=== PATIENT | female | born 1975 | race Asian ===

== ENCOUNTER → 2017-12-29 | Outpatient (CLI) | payer OTHER ==
[2017-12-29 07:20] LABS: HEMATOCRIT 35.6 % (36.0-47.0); HEMOGLOBIN 12.1 g/dl (12.0-15.5); MEAN CORPUSCULAR HEMOGLOBIN 28.3 pg (27.0-33.0); MEAN CORPUSCULAR VOLUME 83.4 fl (80.0-96.0); PLATELET COUNT, AUTOMATED 241 10^3/uL (150-450); RED BLOOD COUNT 4.27 10^6/uL (4.00-5.40); RED CELL DISTRIBUTION WIDTH 12.2 % (11.5-14.5); WHITE BLOOD COUNT 5.9 10^3/uL (4.0-10.0)
[2017-12-29 07:38] LABS: ESTIMATED AVERAGE GLUCOSE 108 MG/DL (60-110); HEMOGLOBIN A1c 5.4 %
[2017-12-29 08:04] LABS: ALBUMIN 3.8 GM/DL (3.2-5.2); ALBUMIN/GLOBULIN RATIO 1.03 (1.00-1.93); ALKALINE PHOSPHATASE 66 U/L (45-117); ALT/SGPT 22 U/L (12-78); ANION GAP 8 MEQ/L (8-16); AST/SGOT 9 U/L (7-37); BILIRUBIN,TOTAL 0.3 MG/DL (0.2-1.0); BLOOD UREA NITROGEN 10 MG/DL (7-18); CALCIUM LEVEL 8.7 MG/DL (8.5-10.1); CARBON DIOXIDE LEVEL 25 MEQ/L (21-32); CHLORIDE LEVEL 110 MEQ/L (98-107); CHOLESTEROL LEVEL 159 MG/DL (<200); CHOLESTEROL RISK RATIO 3.533 (<5); CREATININE FOR GFR 0.54 MG/DL (0.55-1.30); GLOMERULAR FILTRATION RATE > 60.0 (>58); GLUCOSE, FASTING 91 MG/DL (70-100); HDL CHOLESTEROL 45 MG/DL (>40); IRON (FE) 69 UG/DL (50-170); LDL CHOLESTEROL 96.4 MG/DL (<100); NON-HDL-C 114 MG/DL; PERCENT SATURATION 17.3 % (13.2-45.0); RHEUMATOID FACTOR QUANT < 10.0 IU/ML (<15.0); SODIUM LEVEL 143 MEQ/L (136-145); TOTAL IRON BINDING CAPACITY 399 UG/DL (250-450); TOTAL PROTEIN 7.5 GM/DL (6.4-8.2); TRIGLYCERIDES LEVEL 88 MG/DL (<150)
[2017-12-29 08:31] LABS: TOTAL 25(OH) VITAMIN D 14.5 NG/ML (30.0-100.0)
[2017-12-31 00:07] LABS: ANTINUCLEAR ANTIBODIES DIRECT Negative (Negative); Lyme Disease IgG/IgM Antibodie <0.91 ISR (0.00-0.90); Lyme Disease IgM Ab Quantitati <0.80 index (0.00-0.79)
== END ==
LOC: M LAB 06:28
DX: D64.9 Anemia, unspecified (principal); R53.83 Other fatigue; E03.9 Hypothyroidism, unspecified; M06.9 Rheumatoid arthritis, unspecified
CPT/HCPCS: 83550

== ENCOUNTER → 2018-10-18 | Outpatient (CLI) | payer OTHER ==
[~2018-10-18] MED LIST: ANUS2.5C2 TOP; COLA50CA3 PO; IBUP600T26 PO; IBUP80TA PO; IRON18TA2 PO; MAPA500T17 PO; MAPA500T2 PO; MOM30SS PO; MULTIVIT PO; PRENTAB9 PO
[2018-10-18 06:56] LABS: HEMATOCRIT 37.8 % (36.0-47.0); HEMOGLOBIN 12.6 g/dl (12.0-15.5); MEAN CORPUSCULAR HEMOGLOBIN 27.6 pg (27.0-33.0); MEAN CORPUSCULAR HGB CONC 33.3 g/dl (32.0-36.5); MEAN CORPUSCULAR VOLUME 82.7 fl (80.0-96.0); PLATELET COUNT, AUTOMATED 230 10^3/uL (150-450); RED BLOOD COUNT 4.57 10^6/uL (4.00-5.40); WHITE BLOOD COUNT 5.8 10^3/uL (4.0-10.0)
[2018-10-18 07:09] LABS: HEMOGLOBIN A1c 6.1 %
[2018-10-18 07:27] LABS: ALBUMIN 3.9 GM/DL (3.2-5.2); ALT/SGPT 47 U/L (12-78); BILIRUBIN,TOTAL 0.4 MG/DL (0.2-1.0); BLOOD UREA NITROGEN 7 MG/DL (7-18); CALCIUM LEVEL 8.8 MG/DL (8.5-10.1); CARBON DIOXIDE LEVEL 26 MEQ/L (21-32); CHLORIDE LEVEL 106 MEQ/L (98-107); CHOLESTEROL LEVEL 166 MG/DL (<200); CREATININE FOR GFR 0.44 MG/DL (0.55-1.30); GLOMERULAR FILTRATION RATE > 60.0 (>58); GLUCOSE, FASTING 97 MG/DL (70-100); HDL CHOLESTEROL 43 MG/DL (>40); IRON (FE) 67 UG/DL (50-170); LDL CHOLESTEROL 89 MG/DL (<100); NON-HDL-C 123 MG/DL; PERCENT SATURATION 16.4 % (13.2-45.0); POTASSIUM SERUM 4.1 MEQ/L (3.5-5.1); SODIUM LEVEL 138 MEQ/L (136-145); TOTAL IRON BINDING CAPACITY 408 UG/DL (250-450); TOTAL PROTEIN 7.6 GM/DL (6.4-8.2); TRIGLYCERIDES LEVEL 169 MG/DL (<150)
[2018-10-18 09:53] LABS: TOTAL 25(OH) VITAMIN D 13.9 NG/ML (30.0-100.0); VITAMIN B12 LEVEL 317 PG/ML
[2018-10-18 09:54] LABS: FOLATE 16.3 NG/ML
== END ==
LOC: M LAB 06:06
PROVIDERS: ATTEND Family Medicine
DX: D64.9 Anemia, unspecified (principal); R53.83 Other fatigue; E03.9 Hypothyroidism, unspecified

== ENCOUNTER → 2019-02-12 | Outpatient (REF) | payer OTHER | LOC: M LAB REF 17:05 | PROVIDERS: ATTEND Plastic Surgery Surgery of the Hand | DX: L81.4 Other melanin hyperpigmentation (principal) ==

== ENCOUNTER → 2020-09-25 | Outpatient (REF) | payer OTHER, MEDICAID | LOC: M SFHCWAGY 10:11 | PROVIDERS: ATTEND Advanced Practice Midwife | DX: Z12.4 Encounter for screening for malignant neoplasm of cervix (principal) ==

== ENCOUNTER → 2020-10-17 | Outpatient (CLI) | payer OTHER ==
--- NOTE | 2020-10-17 15:52 | REPMRS ---
Patient History The patient states she had a clinical breast exam in 09/2020. Patient had first child at age 37. No known family history of cancer. Taking hormonal contraceptives for 2 months. Patient states no breast complaints today. Patient has signed MRS History Sheet. Digital Woman Screen Mammo: October 17, 2020 - Exam #: [id number] Bilateral CC and MLO view(s) were taken. Technologist: Kati Mak, Technologist FINDINGS: The breast tissue is heterogeneously dense. This may lower the sensitivity of mammography. Screening. Digital screening (2D) mammography was performed bilaterally. Additionally, breast tomosynthesis (3D) mammography was perfomed bilaterally in the CC and MLO projections. Today's examination is the initial screening examination. By history, the patient has no complaints of a palpable breast abnormality or other significant breast complaints. The breasts are symmetric in size and shape.Dense heterogenous fibroglandular elements are seen bilaterally to such a degree that the sensitivity of the mammogram in detecting cancer is decreased. There are no masses. There is no internal architectural distortion. There are no suspicious microcalcific clusters. Skin thickening or nipple retraction is not present. IMPRESSION: BI-RADS Category 2- Benign Findings. There is no evidence of malignant alteration of the breasts. Followup examination recommended in one year. The Volpara volumetric breast density category is C, the breasts are heterogenously dense which may obscure small masses. This mammogram was read with the assistance of [employer],an FDA approved computer aided detection system for mammography. The lifetime Tyrer-Cuzick score is 14.7 % . Due to the density of the breasts, MRI/whole breast screening ultrasound is warranted. Negative x-ray reports should not delay surgical consultation if a dominant or clinically suspicious mass is present. Not all breast cancers can be identified by mammography. Therefore, we recommend that you continue to perform regular breast self-examination and physical examination and then promptly contact your physician of any concerns or changes. Adenosis and dense breasts may obscure an underlying neoplasm. Assessment: BI-RADS/ACR category 2 mammogram. Benign Findings. Recommendation Routine screening mammogram of both breasts in 1 year. Electronically Signed By: Bk High DO 10/17/20 [id number]
== END ==
LOC: M WHC 14:14
PROVIDERS: ATTEND Advanced Practice Midwife
DX: Z12.31 Encounter for screening mammogram for malignant neoplasm of breast (principal)

== ENCOUNTER → 2021-09-19 | Outpatient (CLI) | payer OTHER | LOC: M RAD 08:06 | PROVIDERS: ATTEND Physician Assistant | DX: M50.30 Other cervical disc degeneration, unspecified cervical region (principal); M54.50 Low back pain, unspecified ==

== ENCOUNTER 2021-10-21 13:24 | Outpatient (RCR) | payer OTHER | END 2021-11-12 | LOC: M PT 13:24 | PROVIDERS: ATTEND Physician Assistant | DX: R20.2 Paresthesia of skin (principal) ==

== ENCOUNTER → 2021-11-27 | Outpatient (CLI) | payer OTHER ==
[2021-11-27 17:13] LABS: BASO % 0.3 % (0.0-1.0); EOS # 0.2 10^3/uL (0.0-0.5); EOS % 1.7 % (0.0-3.0); HEMATOCRIT 38.8 % (36.0-47.0); LYMPH # 2.2 10^3/uL (1.5-5.0); LYMPH % 25.7 % (24.0-44.0); MEAN CORPUSCULAR HEMOGLOBIN 28.8 pg (27.0-33.0); MEAN CORPUSCULAR HGB CONC 33.5 g/dl (32.0-36.5); MEAN CORPUSCULAR VOLUME 85.8 fl (80.0-96.0); MONO # 0.8 10^3/uL (0.0-0.8); MONO % 9.2 % (2.0-8.0); NEUTROPHILS # 5.4 10^3/uL (1.5-8.5); NEUTROPHILS % 62.6 % (36.0-66.0); PLATELET COUNT, AUTOMATED 272 10^3/uL (150-450); RED BLOOD COUNT 4.52 10^6/uL (4.00-5.40); WHITE BLOOD COUNT 8.6 10^3/uL (4.0-10.0)
[2021-11-27 17:39] LABS: HEMOGLOBIN A1c 5.7 %
[2021-11-27 18:06] LABS: ALBUMIN 4.2 GM/DL (3.2-5.2); ALT/SGPT 39 U/L (12-78); BILIRUBIN,TOTAL 0.3 MG/DL (0.2-1.0); BLOOD UREA NITROGEN 8 MG/DL (7-18); CALCIUM LEVEL 9.4 MG/DL (8.5-10.1); CARBON DIOXIDE LEVEL 26 MEQ/L (21-32); CHLORIDE LEVEL 106 MEQ/L (98-107); CHOLESTEROL LEVEL 191 MG/DL (<200); CHOLESTEROL RISK RATIO 4.152 (<5); CREATININE FOR GFR 0.52 MG/DL (0.55-1.30); GLOMERULAR FILTRATION RATE > 60.0 (>58); GLUCOSE, FASTING 100 MG/DL (70-100); HDL CHOLESTEROL 46 MG/DL (>40); LDL CHOLESTEROL 116 MG/DL (<100); MAGNESIUM LEVEL 2.3 MG/DL (1.8-2.4); NON-HDL-C 145 MG/DL; POTASSIUM SERUM 4.1 MEQ/L (3.5-5.1); SODIUM LEVEL 138 MEQ/L (136-145); TOTAL PROTEIN 7.7 GM/DL (6.4-8.2); TRIGLYCERIDES LEVEL 143 MG/DL (<150)
[2021-11-27 18:28] LABS: VITAMIN B12 LEVEL 780 PG/ML (247-911)
== END ==
LOC: M LAB 16:23
PROVIDERS: ATTEND Physician Assistant
DX: R21 Rash and other nonspecific skin eruption (principal); R20.2 Paresthesia of skin

== ENCOUNTER → 2022-11-30 | Outpatient (CLI) | payer OTHER | LOC: M PLAIMG 16:31 | PROVIDERS: ATTEND Physician Assistant | DX: M25.572 Pain in left ankle and joints of left foot (principal) ==

== ENCOUNTER → 2023-05-02 | Outpatient (CLI) | payer OTHER | LOC: M WHC 15:27 | PROVIDERS: ATTEND Physician Assistant | DX: Z12.31 Encounter for screening mammogram for malignant neoplasm of breast (principal) ==

== ENCOUNTER → 2023-07-27 | Outpatient (CLI) | payer OTHER | LOC: M RAD 15:10 | PROVIDERS: ATTEND Physician Assistant | DX: M25.512 Pain in left shoulder (principal); M54.2 Cervicalgia; M54.50 Low back pain, unspecified ==

== ENCOUNTER → 2023-11-01 | Outpatient (REF) | payer OTHER, MEDICAID | LOC: M SFHCPLAZ 10:21 | PROVIDERS: ATTEND Physician Assistant Medical | DX: N89.8 Other specified noninflammatory disorders of vagina (principal) ==

== ENCOUNTER → 2024-02-08 | Outpatient (CLI) | payer OTHER ==
[2024-02-08 07:02] LABS: BASO % 0.4 % (0.0-1.0); EOS # 0.2 10^3/uL (0.0-0.5); EOS % 3.4 % (0.0-3.0); HEMATOCRIT 37.5 % (36.0-47.0); HEMOGLOBIN 12.3 g/dl (12.0-15.5); LYMPH # 1.9 10^3/uL (1.5-5.0); LYMPH % 34.3 % (24.0-44.0); MEAN CORPUSCULAR HEMOGLOBIN 28.1 pg (27.0-33.0); MEAN CORPUSCULAR HGB CONC 32.8 g/dl (32.0-36.5); MEAN CORPUSCULAR VOLUME 85.6 fl (80.0-96.0); MONO # 0.6 10^3/uL (0.0-0.8); MONO % 11.1 % (2.0-8.0); NEUTROPHILS # 2.8 10^3/uL (1.5-8.5); NEUTROPHILS % 50.4 % (36.0-66.0); PLATELET COUNT, AUTOMATED 273 10^3/uL (150-450); RED BLOOD COUNT 4.38 10^6/uL (4.00-5.40); WHITE BLOOD COUNT 5.6 10^3/uL (4.0-10.0)
[2024-02-08 07:28] LABS: C REACTIVE PROTEIN QUANTITATIV < 0.40 MG/DL (<1.0)
[2024-02-08 07:30] LABS: ALBUMIN 3.7 G/DL (3.2-5.2); ALKALINE PHOSPHATASE 79 U/L (46-116); ALT/SGPT 16 U/L (7.0-40); AST/SGOT < 8 U/L (<34); BILIRUBIN,TOTAL 0.4 MG/DL (0.3-1.2); BLOOD UREA NITROGEN 13 MG/DL (9-23); CALCIUM LEVEL 9.2 MG/DL (8.5-10.1); CARBON DIOXIDE LEVEL 26 MMOL/L (20-31); CHLORIDE LEVEL 107 MMOL/L (98-107); CHOLESTEROL LEVEL 171 MG/DL (<200); CHOLESTEROL RISK RATIO 3.73 (<5); GLOMERULAR FILTRATION RATE > 60.0 (>58); GLUCOSE, FASTING 106 MG/DL (60-100); HDL CHOLESTEROL 45.8 MG/DL (>40); NON-HDL-C 125.2 MG/DL; POTASSIUM SERUM 4.3 MMOL/L (3.5-5.1); RHEUMATOID FACTOR QUANT 15.4 IU/ML (<14); SODIUM LEVEL 137 MMOL/L (136-145); TRIGLYCERIDES LEVEL 86 MG/DL (<150)
[2024-02-08 07:34] LABS: FERRITIN 17.8 NG/ML (7.3-270.7); FREE T4 1.13 NG/DL (0.89-1.76); VITAMIN B12 LEVEL 786 PG/ML (211-911)
[2024-02-08 07:40] LABS: ERYTHROCYTE SEDIMENTATION RATE 18 mm/hr (0-20)
== END ==
LOC: M LAB 06:05
PROVIDERS: ATTEND Physician Assistant
DX: Z00.00 Encounter for general adult medical examination without abnormal findings (principal); Z13.220 Encounter for screening for lipoid disorders; G89.29 Other chronic pain; M25.50 Pain in unspecified joint; M79.671 Pain in right foot; M79.672 Pain in left foot

== ENCOUNTER → 2024-08-14 | Outpatient (CLI) | payer OTHER ==
[2024-08-14 07:30] LABS: FOLATE 19.4 NG/ML (>5.4); TOTAL 25(OH) VITAMIN D 21.8 NG/ML (20.0-100.0)
[2024-08-14 07:48] LABS: HEMOGLOBIN A1c 5.1 % (4.0-6.0)
== END ==
LOC: M LAB 06:10
PROVIDERS: ATTEND Nurse Practitioner Family
DX: R20.2 Paresthesia of skin (principal)

== ENCOUNTER → 2024-08-28 | Outpatient (CLI) | payer OTHER | LOC: M RAD 15:50 | PROVIDERS: ATTEND Internal Medicine | DX: R76.8 Other specified abnormal immunological findings in serum (principal) ==

== ENCOUNTER → 2024-08-30 | Outpatient (CLI) | payer OTHER | LOC: M RAD 16:08 | PROVIDERS: ATTEND Internal Medicine | DX: M19.041 Primary osteoarthritis, right hand (principal); M19.042 Primary osteoarthritis, left hand ==

== ENCOUNTER → 2025-02-03 | Outpatient (CLI) | payer MEDICAID, OTHER ==
[2025-02-03 16:37] LABS: CHOLESTEROL LEVEL 178.0 MG/DL (<200); CHOLESTEROL RISK RATIO 3.47 (<5); LDL CHOLESTEROL 75.0 MG/DL (<100); NON-HDL-C 126.8 MG/DL; TRIGLYCERIDES LEVEL 259.0 MG/DL (<150)
[2025-02-03 16:48] LABS: ESTIMATED AVERAGE GLUCOSE 128.0 MG/DL (60-110)
== END ==
LOC: M LAB 02-01 15:42
PROVIDERS: ATTEND Nurse Practitioner Family
DX: Z13.1 Encounter for screening for diabetes mellitus (principal); Z13.220 Encounter for screening for lipoid disorders

== ENCOUNTER 2025-04-15 17:04 | Emergency (ER) | payer MEDICAID, OTHER, SELFPAY ==
[~2025-04-15] VITALS: Ht 154.9 cm; Wt 66.1 kg
[2025-04-15] MEDS ORDERED: HYDR-3713 PO (20:05)
[2025-04-15 20:23] VITALS: BP 144/72; TEMP 97.1; O2SAT 100
== END 2025-04-15 20:25 | disposition home or self-care (01) ==
LOC: M ED 17:04
DX: S39.012A Strain of muscle, fascia and tendon of lower back, initial encounter (principal); V89.2XXA Person injured in unspecified motor-vehicle accident, traffic, initial encounter; Y92.9 Unspecified place or not applicable; Y93.9 Activity, unspecified; Y99.9 Unspecified external cause status; E04.1 Nontoxic single thyroid nodule; M47.812 Spondylosis without myelopathy or radiculopathy, cervical region; Z79.899 Other long term (current) drug therapy